=== PATIENT | male | born 2000 | race Caucasian/White ===

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

== ENCOUNTER 2021-03-11 13:00 | Emergency (ER) | payer BC, SELFPAY ==
[2021-03-11 13:01] VITALS: BP 137/80; PULSE 90; RESP 18; TEMP 36.6; O2SAT 100; BMI 22.6
[2021-03-11] MEDS: 0.9% Normal Saline 1,000 ML 1000 ML IV (14:03)
[2021-03-11 14:07] LABS: Bacteria 0 SEEN /hpf (None Seen); Color, Urine Straw (Yellow); Glucose, Dipstick Normal (Normal); Ketone-Dipstick Negative (Negative); Leukocyte Esterase-Dipstick Negative /ul (Negative); Mucous, Urine 0 SEEN /hpf (<or=2+); Nitrite-Dipstick Negative (Negative); Occult Blood-Urine Negative /ul (Negative); Protein-Dipstick Negative (Negative); Red Blood Cells-Urine 0 SEEN /hpf (0-5); Urine Bilirubin Dipstick Negative (Negative); Urine Clarity Clear (Clear); Urine Urobilinogen Normal (Normal); White Blood Cells 0 SEEN /hpf (0-5)
[2021-03-11 14:08] LABS: Absolute Lymphocyte Count 1.82 X10^3/uL (0.83-4.51); Absolute Neutrophil Count 7.5 X10^3/uL (2.0-7.7); Basophil# 0.04 X10^3/uL; Basophil% 0.4 % (0-1); Eosinophils% 2.9 % (0-5); Hemoglobin 14.9 g/dL (13.0-16.5); Lymphocyte # 1.82 X10^3/ul (0.83-4.51); Lymphocyte % 17.4 % (19-41); Mean Corp Hgb Conc 33.9 g/dL (32-36); Mean Corpuscular Hgb 30.2 pg (27.0-32.0); Mean Corpuscular Volume 89.1 fL (80-94); Mean Platelet Vol. 10.3 fl (6.2-12.0); Monocyte# 0.78 X10^3/uL; Monocyte% 7.4 % (0-10); NRBC Flagged by Analyzer 0 % (0-5); Neutrophil % 71.5 % (47-70); Platelet Count 294 K/mm3 (150-450); RBC Distribution Width CV 11.7 % (11.6-14.6); RBC Distribution Width SD 37.3 fl (35.1-43.9); Red Blood Count 4.94 M/mm3 (4.6-6.2); White Blood Count 10.5 K/mm3 (4.4-11.0)
[2021-03-11 14:14] LABS: Squamous Epithelial Cells - UA 0-5 SEEN /hpf (0-5)
[2021-03-11 14:26] LABS: ALB/GLOB Ratio 1.3 RATIO (0.9-2.4); AST(SGOT) 19 U/L (15-37); Alanine Aminotransfer ALT/SGPT 27 U/L (16-61); Albumin, Serum 4.1 g/dL (3.2-5.0); Alkaline Phosphatase 82 U/L (45-117); Anion Gap 7 (5-15); BUN 9 mg/dL (7-18); BUN/Creat Ratio 9.3 RATIO (10-20); Calcium,Total 8.7 mg/dL (8.5-10.1); Chloride 106 mmol/L (98-107); Creatinine, Serum 0.97 mg/dL (0.70-1.30); EST Glomerular Filtration Rate 104 mL/min (>60); Est Glom Filt Rate - Afr Amer 125 mL/min (>60); Globulin 3.2 g/dL (2.2-4.2); Glucose 78 mg/dL (74-106); Potassium 3.4 mmol/L (3.5-5.1); Protein, Total 7.3 g/dL (6.4-8.2); Sodium Level 142 mmol/L (136-145)
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
== END 2021-03-11 15:52 | disposition home or self-care (01) ==
PROVIDERS: Emergency Provider Emergency Medicine
DX: S39.012A Strain of muscle, fascia and tendon of lower back, initial encounter (principal); S30.1XXA Contusion of abdominal wall, initial encounter; V44.5XXA Car driver injured in collision with heavy transport vehicle or bus in traffic accident, initial encounter; Y93.9 Activity, unspecified; Y92.9 Unspecified place or not applicable; Y99.9 Unspecified external cause status
CPT/HCPCS: 74177; 80053; 81001; 85025; 96360; 99283; J7030; Q9967; A4216

== ENCOUNTER 2021-03-21 23:57 | Emergency (ER) | payer BC, SELFPAY ==
[2021-03-21 23:57] VITALS: BP 141/73; PULSE 89; RESP 18; TEMP 36.6; O2SAT 99; BMI 22.6
[2021-03-21 23:59] VITALS: BP 141/73; PULSE 89; RESP 18; TEMP 36.6; O2SAT 99
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
[2021-03-22] MEDS: Silver Sulfadiazine 1% Crm 50 gm Bottle 1 APPLIC TOPICAL (00:33)
[2021-03-22] MEDS: Smz/Tmp Ds Tablet 1 TABLET PO (00:33)
[2021-03-22] MEDS: Cephalexin 250 MG Capsule 500 MG PO (00:33)
== END 2021-03-22 00:34 | disposition home or self-care (01) ==
LOC: ED 03-22 00:32
PROVIDERS: Emergency Provider Emergency Medicine
DX: T23.262A Burn of second degree of back of left hand, initial encounter (principal); X19.XXXA Contact with other heat and hot substances, initial encounter; Y93.9 Activity, unspecified; Y92.9 Unspecified place or not applicable; Y99.9 Unspecified external cause status; F17.210 Nicotine dependence, cigarettes, uncomplicated
CPT/HCPCS: 99283

== ENCOUNTER 2021-11-30 12:52 | Emergency (ER) | payer BC, SELFPAY ==
[2021-11-30 12:53] VITALS: BP 129/84; PULSE 102; RESP 16; TEMP 37; O2SAT 100; BMI 23.1
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
--- NOTE | 2021-11-30 13:17 | RAD_ITS ---
History: Syncope EXAMINATION/TECHNIQUE: XR Chest 1 View: Portable COMPARISON: None FINDINGS: LINES/DEVICES: None. LUNGS: No consolidation, edema or effusion. No pneumothorax. MEDIASTINUM AND CARDIOVASCULAR STRUCTURES: Cardiac silhouette not enlarged. Central airways and mediastinal contour are unremarkable. BONES AND SOFT TISSUES: Unremarkable. RAD/Chest 1 View (Portable) IMPRESSION: No radiographic evidence of acute cardiopulmonary disease. at 1357 Reported and signed by: Sami Lopez MD Electronically Signed: Sami Lopez MD at 13:56 EST ,
[2021-11-30 13:27] LABS: Absolute Lymphocyte Count 2.12 X10^3/uL (0.83-4.51); Absolute Neutrophil Count 5.2 X10^3/uL (2.0-7.7); Basophil# 0.05 X10^3/uL; Basophil% 0.6 % (0-1); Eosinophil# 0.24 X10^3/uL; Eosinophils% 2.9 % (0-5); Hematocrit 43.1 % (40-54); Hemoglobin 15.5 g/dL (13.0-16.5); Lymphocyte # 2.12 X10^3/ul (0.83-4.51); Lymphocyte % 25.7 % (19-41); Mean Corpuscular Hgb 31.3 pg (27.0-32.0); Mean Corpuscular Volume 86.9 fL (80-94); Mean Platelet Vol. 9.9 fl (6.2-12.0); Monocyte# 0.59 X10^3/uL; Monocyte% 7.2 % (0-10); NRBC Flagged by Analyzer 0 % (0-5); Neutrophil # 5.23 X10^3/uL (2.7-7.7); Neutrophil % 63.4 % (47-70); Platelet Count 328 K/mm3 (150-450); RBC Distribution Width CV 11.6 % (11.6-14.6); RBC Distribution Width SD 37.1 fl (35.1-43.9); Red Blood Count 4.96 M/mm3 (4.6-6.2); White Blood Count 8.3 K/mm3 (4.4-11.0)
--- NOTE | 2021-11-30 13:34 | EKG12_ITS ---
Test Reason : SYNCOPE Blood Pressure : / mmHG Vent. Rate : 087 BPM Atrial Rate : 087 BPM P-R Int : 126 ms QRS Dur : 100 ms QT Int : 344 ms P-R-T Axes : 055 038 058 degrees QTc Int : 413 ms Normal sinus rhythm Nonspecific T wave abnormality Abnormal ECG Confirmed by KIMBERLY NIELSON, RADHA ([id number]), sports editor JAMILA ST ([id number]) on 12/02/2021 10:41:21 AM Referred By: SONIA Confirmed By:RADHA HARRIS MD
[2021-11-30 13:46] LABS: AST(SGOT) 6 U/L (15-37); Alanine Aminotransfer ALT/SGPT 19 U/L (16-61); Albumin, Serum 3.6 g/dL (3.2-5.0); Alkaline Phosphatase 86 U/L (45-117); Anion Gap 6 (5-15); BUN 8 mg/dL (7-18); BUN/Creat Ratio 8.2 RATIO (10-20); Calcium,Total 8.9 mg/dL (8.5-10.1); Chloride 107 mmol/L (98-107); Creatinine, Serum 0.97 mg/dL (0.70-1.30); EST Glomerular Filtration Rate 103 mL/min (>60); Est Glom Filt Rate - Afr Amer 124 mL/min (>60); Estimated Creatinine Clearance 108.71 ml/min; Globulin 3.6 g/dL (2.2-4.2); Glucose 99 mg/dL (74-106); Potassium 3.3 mmol/L (3.5-5.1); Protein, Total 7.2 g/dL (6.4-8.2); Sodium Level 139 mmol/L (136-145); Troponin-I HS 5 pg/mL (3.0-78.0)
[2021-11-30 13:48] VITALS: BP 112/75; BP 113/75; BP 117/77; PULSE 83; PULSE 90; PULSE 99
[2021-11-30 14:44] VITALS: BP 108/69; PULSE 76; RESP 18; TEMP 37; O2SAT 100
== END 2021-11-30 14:45 | disposition home or self-care (01) ==
PROVIDERS: Emergency Provider Emergency Medicine; Visit Provider Emergency Medicine
DX: R55 Syncope and collapse (principal); R11.0 Nausea; F17.210 Nicotine dependence, cigarettes, uncomplicated; R07.9 Chest pain, unspecified
CPT/HCPCS: 71045; 80053; 84484; 85025; 93005; 99285

== ENCOUNTER 2023-02-22 01:36 | Inpatient (IN) | payer BC, SELFPAY ==
[2023-02-22] VITALS (12 sets, daily range): BP systolic 106–137; BP diastolic 55–91; PULSE 53–88; RESP 16–26; TEMP 36.5–37.4; O2SAT 95–100; BMI 23.8; BMI 23.0
--- NOTE | 2023-02-22 02:00 | RAD_ITS ---
EXAM: XR CHEST, 1 VIEW CLINICAL INDICATION: chest pain TECHNIQUE: Frontal view of the chest. COMPARISON: 11/30/2021 FINDINGS: LUNGS AND PLEURAL SPACES: Large right pneumothorax, greater than 80% with significant collapse of the right lung concerning for tension. The left lung is clear. No effusion. HEART: Unremarkable. Cardiac silhouette not enlarged. MEDIASTINUM: Central airways and mediastinal contour are unremarkable. BONES/JOINTS: Unremarkable. SOFT TISSUES: Unremarkable. RAD/Chest 1 View (Portable) IMPRESSION: Large right pneumothorax with significant collapse of the right lung concerning for tension. N.B. : The above Results were Read Back by Eliezer Lazaro MD to Neeraj Latham DO, and understanding confirmed on 02/22/2023 02:34:42 (ET). Electronically Signed: Eliezer Lazaro MD at 2:35 EDT ,
[2023-02-22 02:03] LABS: Absolute Lymphocyte Count 2.13 X10^3/uL (0.83-4.51); Absolute Neutrophil Count 9.4 X10^3/uL (2.0-7.7); Basophil# 0.05 X10^3/uL; Basophil% 0.4 % (0-1); Eosinophil# 0.31 X10^3/uL; Eosinophils% 2.4 % (0-5); Hematocrit 44.6 % (40-54); Hemoglobin 15.9 g/dL (13.0-16.5); Lymphocyte # 2.13 X10^3/ul (0.83-4.51); Lymphocyte % 16.8 % (19-41); Mean Corp Hgb Conc 35.7 g/dL (32-36); Mean Corpuscular Hgb 31.2 pg (27.0-32.0); Mean Corpuscular Volume 87.5 fL (80-94); Mean Platelet Vol. 10.1 fl (6.2-12.0); Monocyte# 0.73 X10^3/uL; Monocyte% 5.8 % (0-10); NRBC Flagged by Analyzer 0 % (0-5); Neutrophil % 74.3 % (47-70); Platelet Count 281 K/mm3 (150-450); RBC Distribution Width CV 11.8 % (11.6-14.6); White Blood Count 12.7 K/mm3 (4.4-11.0)
[2023-02-22 02:23] LABS: Anion Gap 5 (5-15); BUN 11 mg/dL (7-18); BUN/Creat Ratio 11.4 RATIO (10-20); Calcium,Total 9.2 mg/dL (8.5-10.1); Chloride 110 mmol/L (98-107); Creatinine, Serum 0.96 mg/dL (0.70-1.30); EST Glomerular Filtration Rate 103 mL/min (>60); Est Glom Filt Rate - Afr Amer 125 mL/min (>60); Estimated Creatinine Clearance 107.99 ml/min; Glucose 108 mg/dL (74-106); Potassium 3.6 mmol/L (3.5-5.1); Sodium Level 143 mmol/L (136-145); Troponin-I HS (w/2H Reflex) 6 pg/mL (3.0-78.0)
--- NOTE | 2023-02-22 02:23 | NURSING ---
PLACED ON 4 N/C PER MD REQUEST. PULSE OX 98 ON ROOM AIR.
--- NOTE | 2023-02-22 02:29 | EDS_ITS ---
HPI History of Present Illness Chief Complaint: Chest Pain Narrative Narrative: 22-year-old male presenting with right-sided chest pain. He states he is a little bit short of breath. He states this started while he was lying in bed. Denies any injury. No cardiac history. He states he has a history of anxiety but this does not feel similar. He denies any fever, chills, cough. He does note that it hurts worse with deep inspiration. PFSH PFS Medical History (Updated 02/22/23 @ 06:[address] Tammy Holbrook MD) Spontaneous pneumothorax Home Medications NK 03/21/21 [History Last Taken Unknown] Allergy/AdvReac Type Severity Reaction Status Date / Time No Known Allergies Allergy Verified 11/30/21 12:53 Surgical History (Updated 02/22/23 @ 06:[address] Tammy Holbrook MD) History of hand surgery Hx of tonsillectomy Social History Smoking Status: Current every day smoker tobacco type: cigarettes ROS ROS ED Constitutional Constitutional ED: Denies chills or fever(s) Eyes Eyes: Denies none or blurry vision ENT ENT ED: Denies ear pain or rhinorrhea Cardiovascular Cardiovascular: Reports chest pain; Denies palpitations or racing heartbeat Respiratory/Chest Respiratory/Chest: Reports dyspnea; Denies cough Gastrointestinal Gastrointestinal: Denies abdominal pain, constipation, nausea or vomiting Genitourinary Genitourinary ED: Denies dysuria or hematuria Musculoskeletal Musculoskeletal: Denies arthralgias or back pain Integumentary Denies abscess or Abrasions Neurologic Neurologic: Denies headache(s) Psychiatric Psychiatric: Denies anxiety or depression Endocrine Endocrinology: Denies cold intolerance or heat intolerance EXAM Physical Exam Const Vital Signs: 02/22/23 01:38 02/22/23 01:56 02/22/23 02:49 Temperature 97.9 F Temperature Source Temporal Pulse Rate 85 81 Respiratory Rate 21 H 26 H Respiratory Effort Respiratory Pattern Blood Pressure 129/86 H 117/82 H Blood Pressure Mean 100 93 Pulse Ox 98 99 100 Oxygen Delivery Method Room Air Room Air Nasal Cannula Oxygen Flow Rate (L/min) 4 02/22/23 04:17 02/22/23 02:40 02/22/23 05:00 Temperature Temperature Source Pulse Rate 70 88 Respiratory Rate 16 16 Respiratory Effort Splinting Respiratory Pattern Normal Blood Pressure 115/86 H 112/72 Blood Pressure Mean 95 85 Pulse Ox 100 99 Oxygen Delivery Method Nasal Cannula Nasal Cannula Oxygen Flow Rate (L/min) 4 4 02/22/23 06:00 02/22/23 06:29 Temperature 98.3 F Temperature Source Oral Pulse Rate 82 67 Respiratory Rate 16 21 H Respiratory Effort Respiratory Pattern Blood Pressure 137/91 H 131/81 H Blood Pressure Mean 106 97 Pulse Ox 95 98 Oxygen Delivery Method Nasal Cannula Nasal Cannula Oxygen Flow Rate (L/min) 4 2 Positive well nourished General Appearance ED: NAD; Negative for pallor HEENT Reports moist mucous membranes normocephalic and atraumatic Eyes PERRL and EOMs intact bilaterally Chest Wall inspection of chest normal and palpation of chest normal Resp Auscultation: diminished lung sounds right throughout Cardio regular rate and regular rhythm GI normal to inspection, nondistended, normoactive bowel sounds Neuro oriented x3 and CN's II-XII intact bilaterally Sensorium / Orientation: awake and alert Motor Exam: strength 5/5 throughout Psych mental status grossly normal Skin no rashes or lesions noted General Skin Exam: Negative for jaundice or pallor Heart Score History: Slightly/Non-Suspicious ECG: Normal Age: </= 45 years Risk Factors: No Risk Factors Troponin: </= Normal Limit Score: 0 MDM MDM MDM Narrative Medical decision making narrative: Patient presented with right-sided chest pain. Differential includes but is not limited to ACS, PE, aortic dissection, pneumonia, pneumothorax, muscle strain. Patient does have diminished breath sounds on the right. I obtained a chest x- ray which on my interpretation shows a large right-sided pneumothorax. EKG showed a normal sinus rhythm with a ventricular rate of 85 bpm without sign of ischemic change. CBC, BMP within normal limits. High-sensitivity troponin 6 and delta troponin 6. Patient initially declined any analgesia but he did ask for some pain medication later. He was given morphine and Zofran. He is placed on nasal cannula oxygen. Due to the heavy volume in the ER there was a delay in getting chest tube placed. For this reason I did consult general surgery and they are amenable to coming in and placing chest tube at this time. Repeat chest x-ray shows reexpansion of the right lung with chest tube placement on my interpretation. Radiologist services and agrees and states that it about 10%. Patient given oxycodone for pain orally after procedure. He is admitted in stable condition. Impression: 1. Spontaneous pneumothorax 2. Chest pain Lab Data Labs: Laboratory Results - last 24 hr 02/22/23 02/22/23 02/22/23 01:50 01:50 04:49 WBC 12.7 H RBC 5.10 Hgb 15.9 Hct 44.6 MCV 87.5 MCH 31.2 MCHC 35.7 RDW Std Deviation 38.0 RDW Coeff of To 11.8 Plt Count 281 MPV 10.1 Immature Gran % (Auto) 0.300 Neut % (Auto) 74.3 H Lymph % (Auto) 16.8 L [place] % (Auto) 5.8 Eos % (Auto) 2.4 Baso % (Auto) 0.4 Absolute Neuts (auto) 9.4 H Absolute Lymphs (auto) 2.13 Nucleated RBC % 0 Sodium 143 Potassium 3.6 Chloride 110 H Carbon Dioxide 28.0 Anion Gap 5 BUN 11 Creatinine 0.96 Estim Creat Clear Calc 107.99 Est GFR (MDRD) Af Amer 125 Est GFR (MDRD) Non-Af 103 BUN/Creatinine Ratio 11.4 Glucose 108 H Calcium 9.2 Troponin I High Sens 6 6 Radiography Diagnostic Testing: Clinical Impression(s) from Imaging Studies Chest X-Ray 02/22/23 02:00 IMPRESSION: Large right pneumothorax with significant collapse of the right lung concerning for tension. N.B. : The above Results were Read Back by Eliezer Lazaro MD to Neeraj Latham DO, and understanding confirmed on 02/22/2023 02:34:42 (ET). Electronically Signed: Eliezer Lazaro MD at 2:35 EDT , ADDENDUM: 02/22/23 0242 IMPRESSION: Large right pneumothorax with significant collapse of the right lung concerning for tension. N.B. : The above Results were Read Back by Eliezer Lazaro MD to Neeraj Latham DO, and understanding confirmed on 02/22/2023 02:34:42 (ET). Electronically Signed: Eliezer Lazaro MD at 2:35 EDT Reading Location ID and State: [facility] / [place] Tel , Service support , Chest X-Ray 02/22/23 06:30 IMPRESSION: Reexpansion of the right lung status post chest tube placement, with a small residual apical pneumothorax, approximately 10%. Electronically Signed: Eliezer Lazaro MD at 7:09 EDT Reading Location ID and State: [facility] / [place] Tel , Service support , Discharge Plan Triage Chief Complaint: Chest Pain ED Provider: Neeraj Latham Dx/Rx/DC Orders Primary Care Provider: Care Physician,No Primary
--- NOTE | 2023-02-22 03:49 | ED.RN ---
PAGED FOR ENOCH AT 0212. NO CALL BACK AFTER 30 MINUTES. HAD [facility] PUT CALL STRAIGHT THROUGH, PHONE WENT TO [facility]. [facility] LEFT. 30 MINUTES PAGED OUT AGAIN WITH A CALL STRAIGHT THROUGH [facility]. CALL WENT TO [facility]. ASKED [facility] TO [facility].
[2023-02-22 04:00] LABS: Reflex Troponin-HS? (from REC) Y
[2023-02-22] MEDS: Ondansetron 4 MG/2 ML Vial IV (04:20)
[2023-02-22] MEDS: Morphine 4 MG/ML Syringe IV (04:20)
[2023-02-22 05:19] LABS: Troponin-I HS 6 pg/mL (3.0-78.0)
--- NOTE | 2023-02-22 05:29 | HP.PCM.SX_ITS ---
HPI - General General Date of Admission: 02/22/23 HPI Narrative MODESTO ZHANG, is a 23 M who presents to the ER due to right chest pain. Patient states it woke him up from sleeping in bed 12 AM this morning. Patient never had anything like this previously. Patient does smoke about a pack of cigarettes a day. Patient's chest x-ray showed a large right pneumothorax with no shift. Patient's vital signs remained stable [facility] Medical History (Updated 02/22/23 @ 06:[address] Tammy Holbrook MD) Spontaneous pneumothorax Home Medications NK 03/21/21 [History Last Taken Unknown] Allergy/AdvReac Type Severity Reaction Status Date / Time No Known Allergies Allergy Verified 11/30/21 12:53 Surgical History (Updated 02/22/23 @ 06:[address] Tammy Holbrook MD) History of hand surgery Hx of tonsillectomy Social History Smoking Status: Current every day smoker tobacco type: cigarettes ROS Constitutional Constitutional: Denies anorexia Eyes Eyes: Denies blurry vision ENT HEENT: Denies dysphagia Cardiovascular Cardiovascular: Reports chest pain and dyspnea Respiratory/Chest Respiratory/Chest: Reports cough, dyspnea and shortness of breath with exertion Gastrointestinal Gastrointestinal: Denies abdominal pain Genitourinary Genitourinary: Denies dysuria Musculoskeletal Musculoskeletal: Denies joint swelling Integumentary Integumentary: Denies rash Neurologic Neurologic: Denies numbness or tingling Psychiatric Psychiatric: Denies depression Hematologic/Lymphatic Hematologic/Lymphatic: Denies easy bleeding Vital Signs Vital Signs Vital Signs: 02/22/23 01:38 02/22/23 01:56 02/22/23 02:49 Temperature 97.9 F Temperature Source Temporal Pulse Rate 85 81 Respiratory Rate 21 H 26 H Respiratory Effort Respiratory Pattern Blood Pressure 129/86 H 117/82 H Blood Pressure Mean 100 93 Pulse Ox 98 99 100 Oxygen Delivery Method Room Air Room Air Nasal Cannula Oxygen Flow Rate (L/min) 4 02/22/23 04:17 02/22/23 02:40 Temperature Temperature Source Pulse Rate 70 Respiratory Rate 16 Respiratory Effort Splinting Respiratory Pattern Normal Blood Pressure 115/86 H Blood Pressure Mean 95 Pulse Ox 100 Oxygen Delivery Method Nasal Cannula Oxygen Flow Rate (L/min) 4 Weight Weight: 147 lb 14.883 oz Body Mass Index (BMI) 23.8 Physical Exam Const alert, oriented x3 and no apparent distress HEENT normocephalic and head/scalp atraumatic Resp Resp Narrative: Decreased breath sounds in the right lung Cardio regular rate GI soft to palpation; Negative for non-distended Palpation: Negative for tender or guarding Extremity no clubbing, cyanosis or edema Neuro CN's II-XII intact bilaterally Psych mental status grossly normal Results Lab / Micro Data Result Diagrams: 02/22/23 01:50 02/22/23 01:50 Labs: Laboratory Results - last 24 hr 02/22/23 01:50: WBC 12.7 H, RBC 5.10, Hgb 15.9, Hct 44.6, MCV 87.5, MCH 31.2, MCHC 35.7, RDW Std Deviation 38.0, RDW Coeff of To 11.8, Plt Count 281, MPV 10.1, Immature Gran % (Auto) 0.300, Neut % (Auto) 74.3 H, Lymph % (Auto) 16.8 L, Jones % (Auto) 5.8, Eos % (Auto) 2.4, Baso % (Auto) 0.4, Absolute Neuts (auto) 9.4 H, Absolute Lymphs (auto) 2.13, Nucleated RBC % 0 02/22/23 01:50: Sodium 143, Potassium 3.6, Chloride 110 H, Carbon Dioxide 28.0, Anion Gap 5, BUN 11, Creatinine 0.96, Estim Creat Clear Calc 107.99, Est GFR (MDRD) Af Amer 125, Est GFR (MDRD) Non-Af 103, BUN/Creatinine Ratio 11.4, Gluc ose 108 H, Calcium 9.2, Troponin I High Sens 6 02/22/23 04:49: Troponin I High Sens 6 Radiology Impression Chest X-Ray 02/22/23 02:00 IMPRESSION: Large right pneumothorax with significant collapse of the right lung concerning for tension. N.B. : The above Results were Read Back by Eliezer Lazaro MD to Neeraj Latham DO, and understanding confirmed on 02/22/2023 02:34:42 (ET). Electronically Signed: Eliezer Lazaro MD at 2:35 EDT , ADDENDUM: 02/22/23 0242 IMPRESSION: Large right pneumothorax with significant collapse of the right lung concerning for tension. N.B. : The above Results were Read Back by Eliezer Lazaro MD to Neeraj Latham DO, and understanding confirmed on 02/22/2023 02:34:42 (ET). Electronically Signed: Eliezer Lazaro MD at 2:35 EDT , Assessment & Plan Assessment/Plan (1) Spontaneous pneumothorax: PLAN: Plan Reviewed x-ray personally and with the patient and his mom. Plan to place percutaneous chest tube. Discussed the procedure with the patient and his mom including risk not limited to need to place a larger chest tube and possible transfer to a tertiary care facility if there is a continued leak. Patient and his mom had no further question this time. Tammy Holbrook M.D. Pager: [phone] [facility] [address] [place] [address], [address] [place] [address] Office: [phone]
[2023-02-22] MEDS: Morphine 2 MG/ML Syringe IV (05:35)
--- NOTE | 2023-02-22 06:13 | PCM.OPRPT ---
Report of Operation Date of Procedure: 02/22/23 Pre-Operative Diagnosis: Spontaneous right pneumothorax Post-Operative Diagnosis: Same Surgery/Procedure Performed:: Placement of right percutaneous chest tube?8 Senegalese Surgeon: Tammy Holbrook Type of Anesthesia: Local Estimated Blood Loss (mL): < 5 cc Description of Procedure: Informed consent was obtained. Right chest prepped draped in usual sterile fashion. Planned insertion site anterior axillary line. Small incision made with 11 blade scalpel. Catheter introducer needle placed over the rib into the pleural?air aspirated. Catheter advanced superiorly directed. Catheter connected to Pleur-evac at -20. Air evacuated, patient still had some occasional bubbles in the chamber. Secured with 3-0 silk at the skin. Vaseline gauze and 4 x 4 gauze sponges placed. Patient tolerated procedure well. Chest x-ray ordered. Addendum: Chest x-ray shows lung mostly reexpanded with a small pneumo still has air leak, chest tube is at the base. Complications none
--- NOTE | 2023-02-22 06:30 | RAD_ITS ---
EXAM: XR CHEST, 1 VIEW CLINICAL INDICATION: chest tube placment TECHNIQUE: Frontal view of the chest. COMPARISON: Portable chest from same date. FINDINGS: LUNGS AND PLEURAL SPACES: Reexpansion of the right lung with a small residual apical pneumothorax, approximately 10%. Some residual atelectasis in the right lung base. No effusion. HEART: Unremarkable. Cardiac silhouette not enlarged. MEDIASTINUM: Central airways and mediastinal contour are unremarkable. BONES/JOINTS: Unremarkable. SOFT TISSUES: Unremarkable. TUBES, LINES AND DEVICES: Placement of a small chest tube at the base of the right thorax. RAD/Chest 1 View (Portable) IMPRESSION: Reexpansion of the right lung status post chest tube placement, with a small residual apical pneumothorax, approximately 10%. Electronically Signed: Eliezer Lazaro MD at 7:09 EDT ,
[2023-02-22] MEDS: oxyCODONE 5 MG Tablet 10 MG PO (06:34)
[2023-02-22] MEDS: diazePAM 5 MG Tablet PO (07:28)
--- NOTE | 2023-02-22 07:56 | NURSING ---
radiaology called ([place]) informed timed specific cxr to be done at 08:20a
--- NOTE | 2023-02-22 08:20 | RAD_ITS ---
STUDY: X-RAY CHEST REASON FOR EXAM: Male, 23 years old. Chest tube TECHNIQUE: Frontal view of the chest COMPARISON: 02/22/2023 at 6:32 AM FINDINGS: There is a right-sided chest tube in place. There is a stable small right apical pneumothorax. There are no pulmonary infiltrates. There are no pleural effusions. There is no left pneumothorax. The heart is normal in size. The visualized osseous structures are within normal limits. RAD/Chest 1 View (Portable) IMPRESSION: Right-sided chest tube in place. Stable small right apical pneumothorax. Electronically Signed: Jesse Lancaster MD at 8:35 EDT ,
[2023-02-22] MEDS: Ketorolac 15 MG/ML Vial IV ×2 (08:24→15:08)
[2023-02-22] MEDS: 0.9% Saline Lock 10 ML Syringe IV ×2 (08:27→15:09)
--- NOTE | 2023-02-22 16:01 | PCM.PN.BLA ---
Progress Note Late entry?did reposition tube slightly by with drying it about a 2 cm as patient was having a bit of chest discomfort unsure if it is due to the tip going horizontally along the base of the long towards the mediastinum. Repeat chest x-ray showed the tip of the catheter pointing superiorly. Patient still has an air leak and did still have a pneumothorax on x-ray. Did discuss patient's x-ray and leak with patient and his mom. Discussed that he will likely need a larger tube?we can wait until the morning to see if there is still a pneumothorax would plan to definitely place a 20 Turkish chest tube or we could do 1 now. Patient is currently stable-- vital signs are stable, leak is not continuous patient preferred to wait till the morning x-ray. Also discussed that after a day of section with a larger chest tube if he still continues to have a larger airleak I would plan to work on transferring patient to a tertiary care facility with thoracic-as it will likely not close with conservative measures. Tammy Holbrook M.D. Pager: [phone] [facility] [address] [place] [address], [address] [place] [address] Office: [phone]
[2023-02-23] VITALS (7 sets, daily range): BP systolic 92–146; BP diastolic 52–90; PULSE 61–70; RESP 14–18; TEMP 36.7–37.1; O2SAT 96–99
[2023-02-23] MEDS: Ketorolac 15 MG/ML Vial IV ×3 (00:48→16:44)
--- NOTE | 2023-02-23 06:50 | RAD_ITS ---
EXAM: XR CHEST, 1 VIEW CLINICAL INDICATION: CT-right TECHNIQUE: Frontal view of the chest. COMPARISON: February 22, 2023 at 8:14 AM. FINDINGS: LUNGS AND PLEURAL SPACES: See below. HEART: Unremarkable. Cardiac silhouette not enlarged. MEDIASTINUM: Central airways and mediastinal contour are unremarkable. BONES/JOINTS: Unremarkable. SOFT TISSUES: Unremarkable. TUBES, LINES AND DEVICES: Right thoracostomy tube has a more transverse course instead of more superiorly directed but appears adequate on the single frontal view. There is residual right pneumothorax, estimated to be 2.7 cm craniocaudal between the visceral and parietal pleura, it was 2.2 cm yesterday at the apex. RAD/Chest 1 View IMPRESSION: 1. Slightly larger measured size of the residual right pneumothorax compared to yesterday morning. Estimated to be about 10-15%. No cardiomediastinal shift. 2. Mild change in orientation of the thoracostomy tube. The entrance overlying the seventh lateral rib appears stable. Electronically Signed: Becky Cano MD at 7:20 EDT ,
[2023-02-23] MEDS: Lidocaine 1% (20 ml mdv) 20 ML Vial INFILT (09:30)
--- NOTE | 2023-02-23 09:30 | RAD_ITS ---
INDICATION: chest tube placement EXAMINATION/TECHNIQUE: X-RAY - XR Chest 1 View COMPARISON: February 23, 2023 646 AM. FINDINGS: LINES/DEVICES: There is a right-sided chest tube in place with its tip projecting over the medial right midlung. LUNGS: There is a small right apical pneumothorax that has slightly decreased in size. MEDIASTINUM AND CARDIOVASCULAR STRUCTURES: Cardiac silhouette not enlarged. Central airways and mediastinal contour are unremarkable. BONES AND SOFT TISSUES: Unremarkable. RAD/Chest 1 View (Portable) IMPRESSION: Slight interval decrease in size of right apical pneumothorax. Electronically Signed: Elena Smith MD at 9:56 EDT ,
[2023-02-23] MEDS: 0.9% Saline Lock 10 ML Syringe IV (09:31)
[2023-02-23] MEDS: Morphine 4 MG/ML Syringe IV (09:32)
--- NOTE | 2023-02-23 09:34 | NURSING ---
Chest tube changed by Dr. Barriga at bedside, to a large tube. Pt harry. the procedure well.
--- NOTE | 2023-02-23 09:45 | PN.SURG_ITS ---
Objective Data Objective Data Vital Signs: Vital Signs Temp Pulse Resp BP Pulse Ox O2 Del Method O2 Flow Rate 98.8 F 66 14 135/90 H 98 Nasal Cannula 2 02/23/23 09:37 02/23/23 09:37 02/23/23 09:37 02/23/23 09:37 02/23/23 09:37 02/23/23 09:37 02/23/23 09:37 Oxygen Flow Rate (L/min) 2 Oxygen Delivery Method Nasal Cannula Weight: 142 lb 13.753 oz Body Mass Index (BMI) 23.0 Intake & Output: Intake and Output for Last 24 Hours 02/21/23 02/22/23 02/23/23 23:59 23:59 23:59 Intake Total 1500 / 1500 300 / 300 Balance 1500 / 1500 300 / 300 Lab / Micro Data Result Diagrams: 02/22/23 01:50 02/22/23 01:50 Radiography Diagnostic Testing: Radiology Impression Chest X-Ray 02/23/23 06:50 IMPRESSION: 1. Slightly larger measured size of the residual right pneumothorax compared to yesterday morning. Estimated to be about 10-15%. No cardiomediastinal shift. 2. Mild change in orientation of the thoracostomy tube. The entrance overlying the seventh lateral rib appears stable. Electronically Signed: Becky Cano MD at 7:20 EDT , Assessment & Plan Assessment/Plan (1) Spontaneous pneumothorax: PLAN: Plan Patient still has small pneumothorax on x-ray and also an air leak with the 8 Polish percutaneous chest tube. We will change to a 20 Polish chest tube. Patient is agreeable with plan. Tammy Holbrook M.D. Pager: [phone] [facility] [address] [place] [address], [facility], [address] [place] [address] Office: [phone] Charges/Coding Visit Charges Inpatient E&M: 65623 Subs Hosp L2
--- NOTE | 2023-02-23 09:47 | PCM.OPRPT ---
Report of Operation Date of Procedure: 02/23/23 Pre-Operative Diagnosis: Right pneumothorax Post-Operative Diagnosis: Same Surgery/Procedure Performed:: Placement of 20 Dominican right chest tube, removal of 8 Dominican chest tube Surgeon: Tammy Holbrook Type of Anesthesia: Local and Supplemental Estimated Blood Loss (mL): < 10 cc Description of Procedure: Patient's right chest prepped draped usual fashion. Incision was planned in the anterior axillary line. 1% lidocaine 12 cc was instilled. Incision was made overlying the rib with a 15 blade scalpel. Tonsils used to enter into the pleural cavity-- bai of air upon entry. 20 Dominican chest tube was placed and directed superiorly. This was attached to Pleur-evac. Chest tube was secured with 0 silk suture with additional vertical mattress suture in place. Patient still has an air leak. Chest x-ray shows tube appears to be in the fissure with still a small pneumothorax. Patient tolerated procedure well. Complications none
[2023-02-23] MEDS: oxyCODONE 5 MG Tablet PO ×2 (13:43→21:41)
[2023-02-24 03:25] VITALS: BP 112/70; PULSE 69; RESP 16; TEMP 36.8; O2SAT 98
[2023-02-24] MEDS: 0.9% Saline Lock 10 ML Syringe IV ×2 (05:18→21:38)
[2023-02-24] MEDS: Ketorolac 15 MG/ML Vial IV (05:18)
--- NOTE | 2023-02-24 05:55 | RAD_ITS ---
EXAM: XR CHEST, 1 VIEW CLINICAL INDICATION: chest tube -- portable TECHNIQUE: Frontal view of the chest. COMPARISON: 02/23/2023. FINDINGS: LUNGS AND PLEURAL SPACES: Persistent small right apical pneumothorax not significantly changed compared to the prior exam 02/23/2023. No effusion. HEART: Unremarkable. Cardiac silhouette not enlarged. MEDIASTINUM: Central airways and mediastinal contour are unremarkable. BONES/JOINTS: Unremarkable. SOFT TISSUES: Unremarkable. TUBES, LINES AND DEVICES: No change in the appearance of the right-sided chest tube. RAD/Chest 1 View (Portable) IMPRESSION: 1. Persistent small right apical pneumothorax not significantly changed compared to the prior exam 02/23/2023. 2. No change in the appearance of the right-sided chest tube. Electronically Signed: Lc Huddleston MD at 5:51 EDT ,
--- NOTE | 2023-02-24 06:49 | CT_ITS ---
We are attempting to reach an attending provider to discuss findings. An addendum with communication details will be sent when the communication is complete. EXAM: CT CHEST WITHOUT INTRAVENOUS CONTRAST CLINICAL INDICATION: right ptx -- eval for blebs TECHNIQUE: Helically acquired images were obtained of the chest without intravenous contrast. This CT exam was performed using one or more of the following dose reduction techniques: automated exposure control, adjustment of the mA and/or kV according to patient size, and/or use of iterative reconstruction technique. RADIATION DOSE: CTDIvol = 13.4 mGy, DLP = 475.57 mGy-cm COMPARISON: No relevant prior studies available. FINDINGS: LUNGS AND PLEURAL SPACES: Moderate right-sided pneumothorax of approximately 30-40% of the volume of the right hemithorax that has increased compared with the previous exam with associated mediastinal shift to the left. Numerous small blebs bilateral lung apices. Multiple nodules measuring 4 mm or less bilaterally in the lower lobes. Subsegmental atelectasis right lung base. No pleural effusion or thickening. HEART: Unremarkable. Heart size is normal. No pericardial effusion. No significant coronary artery calcifications. MEDIASTINUM: Unremarkable. No mediastinal or hilar adenopathy. Esophagus is unremarkable. No hiatal hernia. THYROID: Unremarkable. No thyroid lesions. BONES/JOINTS: Unremarkable. No suspicious lytic or blastic abnormality. VASCULATURE: Unremarkable. Thoracic aorta is non-dilated. TUBES, LINES AND DEVICES: The right-sided chest tube is within the major fissure which may compromise its function. CT/Chest without Contrast IMPRESSION: 1. Moderate right-sided tension pneumothorax that has increased compared with the previous chest x-ray. 2. The right-sided chest tube is within the major fissure which may compromise its function. 3. Numerous small blebs bilateral lung apices. 4. Multiple nodules measuring 4 mm or less bilaterally in the lower lobes. 5. Subsegmental atelectasis right lung base. RECOMMENDATIONS: Multiple nodules measuring 4 mm or less bilaterally in the lower lobes. Consider follow-up in 12 months. Electronically Signed: Lc Huddleston MD at 7:48 EDT ,
--- NOTE | 2023-02-24 07:47 | PCM.PN.SRG ---
Subjective Subjective Patient still has pretty consistent air leak. Having discomfort from chest tube. Objective Data Objective Data Vital Signs: Vital Signs Temp Pulse Resp BP Pulse Ox O2 Del Method O2 Flow Rate 98.3 F 69 16 112/70 98 Nasal Cannula 2 02/24/23 03:25 02/24/23 03:25 02/24/23 03:25 02/24/23 03:25 02/24/23 03:25 02/24/23 03:25 02/24/23 03:25 Oxygen Flow Rate (L/min) 2 Oxygen Delivery Method Nasal Cannula Weight: 142 lb 13.753 oz Body Mass Index (BMI) 23.0 Intake & Output: Intake and Output for Last 24 Hours 02/22/23 02/23/23 02/24/23 23:59 23:59 23:59 Intake Total 1500 / 1500 300 / 300 600 / 600 Output Total 3 / 3 4 / 4 Balance 1500 / 1500 297 / 297 596 / 596 Lab / Micro Data Result Diagrams: 02/22/23 01:50 02/22/23 01:50 Radiography Diagnostic Testing: Radiology Impression Chest X-Ray 02/23/23 09:30 IMPRESSION: Slight interval decrease in size of right apical pneumothorax. Electronically Signed: Elena Smith MD at 9:56 EDT , Chest X-Ray 02/24/23 05:55 IMPRESSION: 1. Persistent small right apical pneumothorax not significantly changed compared to the prior exam 02/23/2023. 2. No change in the appearance of the right-sided chest tube. Electronically Signed: Lc Huddleston MD at 5:51 EDT , Physical Exam Const oriented x3 Resp normal respiratory effort Resp Narrative: right CT inplace + almost continuous leak Cardio regular rate GI soft to palpation and non-tender Extremity no clubbing, cyanosis or edema Assessment & Plan Assessment/Plan (1) Spontaneous pneumothorax: PLAN: Plan Patient with continued pretty consistent air leak with a [address] of the chest was ordered. Plan for transfer to a tertiary care facility with thoracic. Tammy Holbrook M.D. Pager: [phone] [facility] [address] [place] [address], [address] [place] [address] Office: [phone]
[2023-02-24 08:09] VITALS: BP 108/58; PULSE 76; RESP 16; TEMP 36.8; O2SAT 99
--- NOTE | 2023-02-24 08:09 | PCM.DC.SUM ---
Providers Date of Admission: 02/22/23 Date of Discharge: 02/24/23 Primary Care Physician: No Primary Care Phys Reason For Visit: SPONTANEOUS RIGHT PTX Diagnosis Discharge Diagnosis (1) Spontaneous pneumothorax: Status: Acute Code(s): J93.83 - Other pneumothorax Plan Patient with continued pretty consistent air leak with a [address] of the chest was ordered. Plan for transfer to a tertiary care facility with thoracic. Tammy Holbrook M.D. Pager: [phone] [facility] [address] [place] [address], [facility], [address] [place] [id number] Office: [phone] Medications at Discharge Home Medications NK 03/21/21 Hospital Course Operations None Procedures - (8Fr right CT- exchanged for [address]) Summary of Care Provided Minutes Spent on Discharge: 15 Hospital Course: Patient initially went to the ER due to increased right chest pain that woke him up out of sleep. Patient had almost a complete pneumothorax on the right. 8 English chest tube was placed that did mostly reinflate the lung still had a pneumothorax present and continues airleak. This was changed out for a 20 English chest tube which again still showed a good air leak lung was not completely reinflated. CT chest was done which showed multiple small blebs showed some small lung nodules recommend follow-up in 12 months. Patient does have a history of smoking 1 pack/day. Did discuss with patient the importance of stopping smoking which he agreed upon. Due to the continued air leak plan to transfer to tertiary care facility with thoracic surgery. Pt was accepted at [facility] by Dr. Sims. Physical Exam Const oriented x3 Resp normal respiratory effort Resp Narrative: right CT inplace + almost continuous leak Cardio regular rate GI soft to palpation and non-tender Extremity no clubbing, cyanosis or edema Weight / BMI Weight Weight: 142 lb 13.753 oz Body Mass Index (BMI) 23.0 ABG / Lab / Microbiology Data Result Diagrams: 02/22/23 01:50 02/22/23 01:50 Radiography Diagnostic Testing: Radiology Impression Chest X-Ray 02/23/23 09:30 IMPRESSION: Slight interval decrease in size of right apical pneumothorax. Electronically Signed: Elena Smiht MD at 9:56 EDT , Chest X-Ray 02/24/23 05:55 IMPRESSION: 1. Persistent small right apical pneumothorax not significantly changed compared to the prior exam 02/23/2023. 2. No change in the appearance of the right-sided chest tube. Electronically Signed: Lc Huddleston MD at 5:51 EDT , Chest CT 02/24/23 06:49 IMPRESSION: 1. Moderate right-sided tension pneumothorax that has increased compared with the previous chest x-ray. 2. The right-sided chest tube is within the major fissure which may compromise its function. 3. Numerous small blebs bilateral lung apices. 4. Multiple nodules measuring 4 mm or less bilaterally in the lower lobes. 5. Subsegmental atelectasis right lung base. RECOMMENDATIONS: Multiple nodules measuring 4 mm or less bilaterally in the lower lobes. Consider follow-up in 12 months. Electronically Signed: Lc Huddleston MD at 7:48 EDT , ADDENDUM: 02/24/23 0803 IMPRESSION: 1. Moderate right-sided tension pneumothorax that has increased compared with the previous chest x-ray. 2. The right-sided chest tube is within the major fissure which may compromise its function. 3. Numerous small blebs bilateral lung apices. 4. Multiple nodules measuring 4 mm or less bilaterally in the lower lobes. 5. Subsegmental atelectasis right lung base. RECOMMENDATIONS: Multiple nodules measuring 4 mm or less bilaterally in the lower lobes. Consider follow-up in 12 months. N.B. : The above Results were Read Back by Lc Huddleston MD to Tammy Holbrook MD, and understanding confirmed on 02/24/2023 07:56:52 (ET). Electronically Signed: Lc Huddleston MD at 7:48 EDT , Meaningful Use Info Meaningful Use Diagnoses (Choose all that apply): None applicable Discharge Plan Admission Admit Date/Time: 02/22/23 06:20 Attending Provider: Tammy Holbrook Primary Care Provider: Care Physician,No Primary Discharge Orders/Prescriptions Prescriptions: No Action NK Referrals / Follow Up: Care Physician,No Primary [Primary Care Provider] -
--- NOTE | 2023-02-24 10:41 | CASEMGMT ---
According to [facility] website, the following tertiary facilities are in network: [facility], [place], [facility], [facility], [facility], [facility] and .
[2023-02-24] MEDS: oxyCODONE 5 MG Tablet PO ×3 (13:27→21:39)
[2023-02-24 14:30] VITALS: BP 119/54; PULSE 90; RESP 16; TEMP 36.9; O2SAT 99
[2023-02-24 19:55] VITALS: BP 109/62; PULSE 75; RESP 18; TEMP 36.9; O2SAT 99
--- NOTE | 2023-02-24 20:15 | NURSING ---
report called to Queta GREY at [facility]
== END 2023-02-24 22:59 | disposition short-term general hospital (02) | DRG 201 ==
LOC: ED 02:24 → MS3 07:39
PROVIDERS: Admitting Provider Surgery; Emergency Provider Student in an Organized Health Care Education/Training Program; Visit Provider Surgery
DX: J93.83 Other pneumothorax (principal); F17.210 Nicotine dependence, cigarettes, uncomplicated; F41.9 Anxiety disorder, unspecified
CPT/HCPCS: 32551; 71045; 71250; 80048; 84484; 85025; 93005; 94668; 99252; 99284; 99406; A4216; G0463; J2405

== ENCOUNTER 2024-09-04 12:26 | Emergency (ER) | payer OTHER, SELFPAY ==
[2024-09-04 12:27] VITALS: BP 132/106; PULSE 97; RESP 20; TEMP 36.1; O2SAT 100; BMI 24.8
[2024-09-04] MEDS: Ketorolac 30 MG/ML Syringe IM (13:24)
[2024-09-04] MEDS: Orphenadrine 60 MG/2 ML Ampul IM (13:25)
--- NOTE | 2024-09-04 13:33 | RAD_ITS ---
EXAM: XR CHEST, 1 VIEW CLINICAL INDICATION: hx of pneumothorax TECHNIQUE: Frontal view of the chest. COMPARISON: 02/24/2023 FINDINGS: LUNGS AND PLEURAL SPACES: Unremarkable. No consolidation or edema. No pneumothorax. No effusion. HEART: Unremarkable. Cardiac silhouette not enlarged. MEDIASTINUM: Central airways and mediastinal contour are unremarkable. BONES/JOINTS: Unremarkable. No acute fracture. SOFT TISSUES: Unremarkable. RAD/Chest 1 View (Portable) IMPRESSION: No radiographic evidence of acute cardiopulmonary disease. Electronically Signed: Eliezer Lam MD at 14:40 EST ,
--- NOTE | 2024-09-04 13:51 | ED.VIS.BACK ---
HPI <PAPI Juarez - Last Filed: 09/04/24 13:55> History of Present Illness Chief Complaint: Back Narrative Narrative: Patient is a 24-year-old male with history of spontaneous pneumothorax who presents to the [facility] part with right sided shoulder blade pain, right lower back pain. Patient states he thought he heard at work, and he was playing with his daughter, when she jumped off a bed and he caught her he felt a big pulling sensation in his mid back. Patient is over the last 3 to 4 days of getting worse. Worsening with movement, he has been using creams, Tylenol and this has not been helping. Here for evaluation [facility] <PAPI Juarez - Last Filed: 09/04/24 13:55> [facility] Medical History Spontaneous pneumothorax Home Medications ?Medication ?Instructions ?Recorded ?Last Taken ?Type lidocaine HCl 2 % mucosal solution 1 applic mucous membrane TID PRN 06/30/24 Unknown Rx pain #100 mL cyclobenzaprine 10 mg tablet 10 mg PO TID PRN Muscle Spasm #20 09/04/24 Unknown Rx TABLETS naproxen 500 mg tablet (Naprosyn) 500 mg PO BID PRN pain #20 tabs 09/04/24 Unknown Rx Allergy/AdvReac Type Severity Reaction Status Date / Time No Known Allergies Allergy Verified 09/04/24 12:27 Surgical History Hx of tonsillectomy History of hand surgery Social History Smoking Status: Current every day smoker tobacco type: cigarettes ROS <PAPI Juarez - Last Filed: 09/04/24 13:55> ROS ED ROS Narrative Constitutional: Negative for fever, chills, weight loss, weakness Eyes: Negative for vision loss, vision change, double vision ENT: Negative for any sore throat, ear pain, congestion Cardiovascular: Negative for any chest pain, tightness, palpitations Respiratory: Negative for any cough, sputum production, hemoptysis, dyspnea, dyspnea on exertion, orthopnea Gastrointestinal: Negative for any abdominal pain, nausea, vomiting, diarrhea, constipation, blood in stool, blood in vomit : Negative for any urinary frequency, dysuria, retention, blood in urine Muscle skeletal: Negative for any neck pain. Positive for left-sided mid to low back pain Neurological: Negative for any headache, syncope, dizziness Skin: Negative for any rashes, itching, abrasions, lacerations Psychiatric: Negative for any depression, anxiety, stress, suicidal ideation, homicidal ideation Hematologic: Negative for any excessive bruising, easy bleeding EXAM <PAPI Juarez - Last Filed: 09/04/24 13:55> Physical Exam Narrative Exam Narrative: Vital signs reviewed. HEET: Head normocephalic atraumatic, TMs clear bilaterally. Posterior pharynx is clear, moist mucous membranes. Nares clear bilaterally. Neck: Supple with no lymphadenopathy or tenderness. No signs of meningismus. Cardiac: Regular rate and rhythm no murmurs gallops or rubs, equal peripheral pulses bilaterally. Respiratory: Lungs clear to auscultation bilaterally. No chest tenderness. Abdomen: Soft, nontender, nondistended. No abdominal bruit or pulsatile masses. No hepatosplenomegaly Extremities: No peripheral edema, no signs of gross trauma or deformity. Active full range of motion of all extremities. Neuro: Cranial nerves II through XII intact, no focal neurological deficits. Skin: Clean dry and intact with no rash, purpura, petechiae, vesicles or pustules. Backs/flank: No CVA tenderness, no midline spinal tenderness, no deformity. Patient's pain is mostly just below the right shoulder blade, also to the right lower lumbar spine. Worse with movement flexion and extension. There is no radicular symptoms. Psych: Normal mood and affect. No SI, HI or acute psychosis. Const Vital Signs: 09/04/24 12:27 Temperature 97 F L Temperature Source Temporal Pulse Rate 97 Respiratory Rate 20 H Blood Pressure 132/106 H Blood Pressure Mean 114 Pulse Ox 100 Oxygen Delivery Method Room Air <Dr. Gurwinder Monge DO - Last Filed: 09/04/24 14:05> Physical Exam Const Vital Signs: 09/04/24 12:27 Temperature 97 F L Temperature Source Temporal Pulse Rate 97 Respiratory Rate 20 H Blood Pressure 132/106 H Blood Pressure Mean 114 Pulse Ox 100 Oxygen Delivery Method Room Air MDM <PAPI Juarez - Last Filed: 09/04/24 13:55> [facility] Treatment and Re-Evaluation Narrative: Differential diagnosis includes however is not limited to: Thoracic strain, spontaneous pneumothorax, lumbar strain, rib fracture, costochondritis Patient appears generally well, vital signs are stable, patient is nontoxic-appearing. Presenting to the [facility] apartment with 3 to 4 days of worsening pain to the left mid to lower back. Physical examination is consistent with muscle skeletal pain. I did perform a 1 view chest x-ray just to ensure there is no pneumothorax secondary to his history. Chest x-ray interpreted by ER physician was negative. At this time, patient was given IM Toradol, IM Norflex. On reevaluation, the patient was feeling improved. Patient received naproxen, Flexeril for home. Will be given a work note. All questions answered, stable for discharge. <Dr. Gurwinder Monge, DO - Last Filed: 09/04/24 14:05> [facility] History & Record Review Discussion w/independent historian: Patient Treatment and Re-Evaluation Narrative: Differential diagnosis includes however is not limited to: Thoracic strain, spontaneous pneumothorax, lumbar strain, rib fracture, costochondritis Patient appears generally well, vital signs are stable, patient is nontoxic-appearing. [facility] with 3 to 4 days of worsening pain to the left mid to lower back. Physical examination is consistent with muscle skeletal pain. I did perform a 1 view chest x-ray just to ensure there is no pneumothorax secondary to his history. Chest x-ray interpreted by ER physician was negative. At this time, patient was given IM Toradol, IM Norflex. On reevaluation, the patient was feeling improved. Patient received naproxen, Flexeril for home. Will be given a work note. All questions answered, stable for discharge. I have personally performed a face to face assessment of the patient and have reviewed the [facility] Note. I performed a substantive portion of the visit including all aspects of the following. My butcher findings include: History is 24-year-old male presenting to the emergency room with right lower mid back pain. Symptoms began the day after he attempted to catch a 4-year-old that was jumping off the bed. He states that each day is gotten progressively worse. He notes limited range of motion due to pain. He feels that the muscles are in spasm. He denies any radicular symptoms. He denies hematuria. No rashes. No history of immunosuppression IVD fevers he has had prior pneumothorax on the right. Exam is patient has a slight side bend to the right involving the lower lumbar or thoracic spine. Palpable muscle spasm involving the paraspinal musculature in the lumbar region. No rashes noted. Neurovascular intact of the lower extremities Medical Decison Making my independent interpretation of the chest x-ray is no acute process. Specifically no pneumothorax. Clinically I think that this is muscular spasm/myofascial strain. Would recommend anti-inflammatories and muscle relaxants. Would recommend rest gentle stretching and heat Discharge Plan Triage Chief Complaint: Back ED Midlevel Provider: aMdan Fonseca ED Provider: Gurwinder Monge Dx/Rx/DC Orders Clinical Impression: Strain of chest wall, Acute thoracic myofascial strain Instructions: ED Back Sprain/Strain, ED Chest Wall Strain Prescriptions: New naproxen [Naprosyn] 500 mg tablet 500 mg PO BID PRN (Reason: pain) Qty: 20 0RF cyclobenzaprine 10 mg tablet 10 mg PO TID PRN (Reason: Muscle Spasm) Qty: 20 0RF No Action lidocaine HCl 2 % solution 1 applic mucous membrane TID PRN (Reason: pain) Qty: 100 0RF Stand Alone Forms: ED Work / School Excuse Primary Care Provider: Care Physician,No Primary Referrals: Care Physician,No Primary [Primary Care Provider] - Activity Restrictions/Additional Instructions: Ensure that you perform gentle stretching, ice and heat. Print Language: Citizen Of [place] Disposition Disposition: Home, Self Care
== END 2024-09-04 14:10 | disposition home or self-care (01) ==
PROVIDERS: Emergency Provider Emergency Medicine; Visit Provider Emergency Medicine
DX: S29.012A Strain of muscle and tendon of back wall of thorax, initial encounter (principal); S29.011A Strain of muscle and tendon of front wall of thorax, initial encounter; M54.50 Low back pain, unspecified; F17.210 Nicotine dependence, cigarettes, uncomplicated; X58.XXXA Exposure to other specified factors, initial encounter
CPT/HCPCS: 71045; 96372; 99282